=== PATIENT | female | born 1975 | race Caucasian/White ===

== ENCOUNTER → 2024-03-26 10:15 | Outpatient (REF) | payer BC, SELFPAY | LOC: RAD 10:15 | PROVIDERS: ATTENDING PHYSICIAN Urology; FAMILY PHYSICIAN Internal Medicine | DX: N13.39 Other hydronephrosis (principal) | CPT/HCPCS: 76775; 78708; A9539 ==

== ENCOUNTER 2024-07-07 04:18 | Observation (INO) | payer BC, SELFPAY ==
[2024-07-06 21:28] VITALS: BP 119/77
[2024-07-06 21:52] LABS: % Basophils 0.6 % (0-2); % Eosinophils 1.4 % (0-6); % Immature Granulocytes 0.1 % (0-0.5); % Lymphocytes 31.7 % (20.5-51.1); % Monocytes 7.3 % (1.7-9.3); % Neutrophils 58.9 % (42.2-75.2); Absolute Basophils 0.1 10^3/uL (0-0.2); Absolute Eosinophils 0.1 10^3/uL (0-0.7); Absolute Lymphocytes 2.8 10^3/uL (1.2-3.4); Absolute Monocytes 0.6 10^3/uL (0.1-0.6); Absolute Neutrophils 5.1 10^3/uL (1.4-6.5); Hemoglobin 13.5 g/dL (12.0-16.0); Mean Corp Hgb Conc. 35.5 g/dL (33.0-37.0); Mean Corpuscular Hgb 30.5 pg (27.0-31.0); Mean Corpuscular Volume 85.8 fL (81.0-99.0); Mean Platelet Volume 9.5 fL (7.4-10.4); Nucleated Red Blood Cells % 0 %; Platelet Count 287 10^3/uL (130-400); Red Blood Cell Count 4.43 10^6/uL (4.20-5.40); Red Cell Dist. Width 11.9 % (11.5-14.5); White Blood Cell Count 8.7 10^3/uL (4.8-10.8)
[2024-07-06 21:59] LABS: ALT (SGPT) 32 U/L (0-35); AST (SGOT) 37 U/L (14-36); Albumin 4.4 g/dl (3.5-5.0); Alkaline Phosphatase 73 U/L (38-126); Blood Urea Nitrogen 12 mg/dl (7-17); Calcium 9.9 mg/dl (8.4-10.2); Carbon Dioxide 23 mmol/L (22-30); Chloride 103 mmol/L (98-107); Glucose 115 mg/dl (70-99); Potassium 3.5 mmol/L (3.5-5.1); Sodium 139 mmol/L (135-145); Total Bilirubin 0.6 mg/dl (0.2-1.3); Total Protein 6.9 g/dl (6.3-8.2); eGFR > 60.00
[2024-07-06 22:06] VITALS: BP 140/82
[2024-07-06 22:17] LABS: Troponin I < 0.012 ng/ml
--- NOTE | 2024-07-06 22:35 | ED.GENMED ---
History of Present Illness
<KEITH Patel (Lenka) - Last Filed: 07/07/24 00:25>
General
Chief Complaint: Fainting/Passed Out
Source: patient and spouse
Exam Limitations: none
Time Seen by Provider: 07/06/24 22:18
Nursing documentation reviewed up to this point in time: agreed with
History of Present Illness
History of Present Illness:
Pt is a 49yo female with PMHx migraines who presents to the ED after a syncopal event at 2050. Pt was at a football game tonight, felt completely fine leading up to the game and at the start of the game. She was sitting on the benches when her
'stomach felt queasy'. She had not eaten dinner. She stood up to get food and on her way to concessions, she developed blurry vision. She called her , leaned against a fence, and that is all she recalls. Her syncopal event was witnessed by
bystanders. Pt awoke on the ground, hitting the back of her head. states he got to her within 1 minute and pt was awake. Pt states she knew who she was and where she was, but struggled to recall the year. She has had 2 episodes of NBNB
emesis since, and now reports lingering nausea. Matted blood noted to the back of the head, pt complaining of pain to posterior scalp. Denies ADAMS, URI sx, fever/chills, chest pain or palpitations, dyspnea, dizziness, diaphoresis, abdominal pain
(states 'it wasn't pain, it was more discomfort and queasiness'), vaginal or rectal bleeding.
Not on blood thinners.
Not diabetic.
No PMHx of vertigo, vasovagal events, cardiac conditions.
No FHx of cardiac conditions.
Past History
<KEITH Patel (Lenka) - Last Filed: 07/07/24 00:25>
Past History
ED Past Medical History: Other (Migraine headache)
ED Past Surgical History: (x3)
Social History
Tobacco: Non-smoker
Alcohol: None
Drug: None
Personal:
Living: with family
Phy Exam
<KEITH Patel (Lenka) - Last Filed: 07/07/24 00:25>
General Physical Exam
General Presentation: mild distress (appears fatigued and weak side-lying in bed)
General age: appears stated age
General Skin: warm and dry
General Habitus: normal
General Mental: alert
Eye Exam
Eye Exam: EOMI and conjunctiva normal
Cardiovascular Exam
Cardiovascular Exam: regular rate/rhythm, no edema, no gallop and normal peripheral pulses
Pulmonary Exam
Pulmonary Exam: lungs clear, no respiratory distress, no rales, no rhonchi, no wheezing and no cough
Gastrointestinal Exam
Gastrointestinal Exam: normal bowel sounds, non tender, soft and non distended
Neurological Exam
Neurological Exam: alert, oriented x3 and speech normal
Musculoskeletal Exam
Musculoskeletal Exam: other (tenderness to the occiput with palpation)
Skin Exam
Skin Exam: laceration (4cm laceration to posterior scalp, near occiput. )
Course
<KEITH Patel (Lenka) - Last Filed: 07/07/24 00:25>
Orders/Labs/Results
Orders:
Orders
07/06/24 21:32
ECG [Electrocardiogram (*1)] Urgent
Reason for Study: Vertigo / Dizzy
07/06/24 21:33
CT Head W/o Iv Contrast Urgent
Comment:
Reason For Exam: head injury
EKG- Treatment ONCE
07/06/24 21:40
Complete Blood Count/With Diff Urgent
Comprehensive Metabolic Panel Urgent
Troponin I Urgent
07/06/24 23:13
Metoclopramide [Reglan] 10 mg IV NOW STA
07/06/24 23:45
0.9% Sodium Chloride 1000 ml [Nss] 1,000 ml IV BOLUS
07/07/24 00:24
Cephalexin Monohydrate [Keflex] 500 mg PO NOW STA
Meclizine [Antivert] 25 mg PO NOW STA
Tetanus/Diphth/Acelpertussis [Adacel] 0.5 ml IM .ONCE ONE
07/07/24 02:06
Acetaminophen 1000MG/100Ml [Ofirmev] 1,000 mg in 100 ml IV ONCE
Acetaminophen IV Indication:: ED Narcotic Naive Pt-ONCE
Meclizine [Antivert] 25 mg PO NOW STA
07/07/24 03:22
Orthostatic VS- Treatment ONCE
07/07/24 03:57
Admit/Transfer Patient As Directed
Co-Sign Provider:
Level of Care: Observation services
Assign to:: Telemetry
Physician / Group: Ed
Diagnosis: Syncope
Reason for Telemetry: Syncope
Date to Stop Telemetry: 07/09/24
Time to Stop Telemetry: 11:00
Code Status As Directed
Resuscitation Status: Full Code
PRN Pain Medication Management As Directed
May give lesser potent ordered pain med per pt: Yes
preference::
Protocol:: Medication orders for pain may be administered in a
manner that supports deferring to patient preference
when the pt is:
- Requesting an ordered lesser potent pain medication.
Least to most potent pain medications are defined
as: acetaminophen < NSAID < tramadol < opioids
(morphine, oxycodone, hydromorphone).
- Requesting a lesser dose of the same medication IF
ORDERED.
- Requesting a less intrusive route of administration
if both routes are prescribed by the provider (PO <
IV).
07/09/24 11:00
DC Protocol for Telemetry ONCE
Abnormal Lab Results
07/06/24
21:40
Glucose 115 H mg/dl
(70-99)
AST 37 H U/L
(14-36)
07/06/24 21:40
07/06/24 21:40
Vital Signs
Initial and Last Documented VS:
Initial Vital Signs
Temp Pulse Resp BP Pulse Ox
97.9 F 71 20 119/77 99
07/06/24 21:28 07/06/24 21:28 07/06/24 21:28 07/06/24 21:28 07/06/24 21:28
Last Documented Vital Signs
Temp Pulse Resp BP Pulse Ox
97.9 F 78 19 116/78 95
07/06/24 21:28 07/06/24 22:30 07/07/24 03:37 07/07/24 03:37 07/07/24 03:37
<Kerri Scherer, DO - Last Filed: 07/07/24 04:02>
Orders/Labs/Results
Orders:
Orders
07/06/24 21:32
ECG [Electrocardiogram (*1)] Urgent
Reason for Study: Vertigo / Dizzy
07/06/24 21:33
CT Head W/o Iv Contrast Urgent
Comment:
Reason For Exam: head injury
EKG- Treatment ONCE
07/06/24 21:40
Complete Blood Count/With Diff Urgent
Comprehensive Metabolic Panel Urgent
Troponin I Urgent
07/06/24 23:13
Metoclopramide [Reglan] 10 mg IV NOW STA
07/06/24 23:45
0.9% Sodium Chloride 1000 ml [Nss] 1,000 ml IV BOLUS
07/07/24 00:24
Cephalexin Monohydrate [Keflex] 500 mg PO NOW STA
Meclizine [Antivert] 25 mg PO NOW STA
Tetanus/Diphth/Acelpertussis [Adacel] 0.5 ml IM .ONCE ONE
07/07/24 02:06
Acetaminophen 1000MG/100Ml [Ofirmev] 1,000 mg in 100 ml IV ONCE
Acetaminophen IV Indication:: ED Narcotic Naive Pt-ONCE
Meclizine [Antivert] 25 mg PO NOW STA
07/07/24 03:22
Orthostatic VS- Treatment ONCE
07/07/24 03:57
Admit/Transfer Patient As Directed
Co-Sign Provider:
Level of Care: Observation services
Assign to:: Telemetry
Physician / Group: Ed
Diagnosis: Syncope
Reason for Telemetry: Syncope
Date to Stop Telemetry: 07/09/24
Time to Stop Telemetry: 11:00
Code Status As Directed
Resuscitation Status: Full Code
PRN Pain Medication Management As Directed
May give lesser potent ordered pain med per pt: Yes
preference::
Protocol:: Medication orders for pain may be administered in a
manner that supports deferring to patient preference
when the pt is:
- Requesting an ordered lesser potent pain medication.
Least to most potent pain medications are defined
as: acetaminophen < NSAID < tramadol < opioids
(morphine, oxycodone, hydromorphone).
- Requesting a lesser dose of the same medication IF
ORDERED.
- Requesting a less intrusive route of administration
if both routes are prescribed by the provider (PO <
IV).
07/09/24 11:00
DC Protocol for Telemetry ONCE
Abnormal Lab Results
07/06/24
21:40
Glucose 115 H mg/dl
(70-99)
AST 37 H U/L
(14-36)
07/06/24 21:40
07/06/24 21:40
Vital Signs
Initial and Last Documented VS:
Initial Vital Signs
Temp Pulse Resp BP Pulse Ox
97.9 F 71 20 119/77 99
07/06/24 21:28 07/06/24 21:28 07/06/24 21:28 07/06/24 21:28 07/06/24 21:28
Last Documented Vital Signs
Temp Pulse Resp BP Pulse Ox
97.9 F 78 19 116/78 95
07/06/24 21:28 07/06/24 22:30 07/07/24 03:37 07/07/24 03:37 07/07/24 03:37
Procedures
<KEITH Patel (Lenka) - Last Filed: 07/07/24 00:25>
Laceration Closure
Left Posterior Scalp:
Status of Wound: clean
Size of Wound in cm: 3.5
Description of Wound Edges: sharp
Preparation: cleaned with saline
Anesthesia: 1% Lidocaine with epi and added Na Bicarb to local
Revision/Debridement: routine- no revision
Type of Closure: single layer closure
Skin Closure Material: skin loy
Number of sutures: 8 (loy)
<KEITH Patel (Lenka) - Last Filed: 07/07/24 00:25>
MDM/Problems Addressed
Differential Diagnosis Includes:
DDx: vasovagal syncope vs orthostatic hypotension vs PE vs AV block
Chronic conditions affecting care: Other (migraines)
<KEITH Patel (Lenka) - Last Filed: 07/07/24 00:25>
*Critical Care Note
Total Time (30-74mins, 75-104mins- exclusive of procedures): Not Applicable
<KEITH Patel (Lenka) - Last Filed: 07/07/24 00:25>
Update Note
Update Note:
CT head
IMPRESSION:
No evidence of acute intracranial abnormality.
posterolateral scalp hematoma. There are also small foci of air within the scalp, suggesting an associated laceration. No evidence for calvarial fracture.
Electronically signed by Leland Pascual MD, 07/06/2024 10:55 PM
07/07, 0000 - pt's nausea is improved post-reglan when stationary. Still feels vertiginous with movement. Head lac cleaned, noted to be about 3.5 cm in length.
07/07, 0013 - 3mL (2mL lido w/ epi + 1mL bicarb) injected around wound
ED Attending Note
<KEITH Patel (Lenka) - Last Filed: 07/07/24 00:25>
-
Portions of this chart may have been created with voice recognition software.� Occasional wrong word or��sound alike� substitutions may have occurred due to the inherent limitations of voice recognition software.
<Kerri Scherer DO - Last Filed: 07/07/24 04:02>
ED Attending Note
Patient seen and examined by attending physician: Yes
I performed the substantive portion of visit, reviewed & personally made and approve the management plan that is documented in note by myself or BOWEN.: Yes
ED Attending Note:
This is a 49-year-old woman who has no significant past medical history save for migraine headaches which have been very well-controlled, rare in occurrence with onset of menopause December 2023.
Had previously been maintained on Topamax but currently takes no medicines on a daily basis.
While at a local high school football game tonight she began to feel queasy and admits that she had skipped dinner tonight that she got up to ambulate to the stadium snack stand and while doing so she began to not feel well, lightheaded, tunnel
vision, nausea, diaphoresis which proceeded to worsen. She leaned against a fence, called her on her cell phone then proceeded to pass out, falling backwards and striking the back of her head on the ground. Reported brief loss of
consciousness, no report of seizure activity, no loss of bowel or bladder function. No history of similar episodes in the past.
She arrives via EMS and admits to feeling moderately nauseous more so when she changes position with onset of dizziness and nausea. She vomited once in the ambulance and once upon arrival to the ED. She admits to mild to moderate pain focally left
posterior parietal scalp where she has suffered a laceration to her scalp. Mild local bleeding that stopped promptly with brief local pressure.
She denies dizziness prior to syncopal episode, no palpitations.
She denies neck pain or back pain, no chest pain, no shortness of breath, no abdominal pain. No weakness nor numbness. No extremity pain. No vision difficulty.
Mild nausea returns only when she repositions, more so when she turns her head.
She takes no anticoagulants.
TRAUMA EXAM:
VITAL SIGNS: Vital signs reviewed, cooperative
DISTRESS: No active disease
EYES: Pupils reactive, extraocular muscles intact. No orbital trauma
NOSE: No deformity or epistaxis
FACE AND SCALP: 3.5 cm vertical/oblique laceration left posterior parietal scalp with mild local soft tissue swelling, mild to moderate local tenderness to palpation but no palpable bony abnormality.
NECK: Supple, no midline tenderness, full range of motion without difficulty nor pain. Nontender
BACK: Back nontender, pelvis stable to compression
RESPIRATORY: No distress, breath sounds normal, no tender chest wall
CARDIAC: No murmur, pulses equal and strong
ABDOMEN: Soft nontender bowel sounds normal
SKIN: Warm and dry, normal color. Good turgor.
EXTREMITIES: Nontender, full range of motion without difficulty nor pain.
NEUROLOGICAL: Alert, oriented, no motor deficits
PSYCH: Mood affect normal
History most consistent with vasovagal syncope. Other consideration is arrhythmia, hypoglycemia, electrolyte abnormality, acute gastroenteritis. Positional vertigo appears to be posttraumatic in nature versus acute concussion syndrome, concern for
intracranial traumatic injury. Will check CT of the head, labs, EKG, continue air sampling and monitoring.
Initiate IV fluids and given IV dose of Reglan for nausea.
Will update Tdap.
Patient will require staple repair of scalp laceration.
07/07/2024 0207 AM
Labs are unremarkable as is CT of the head showing no acute intracranial traumatic findings.
EKG shows normal sinus rhythm, no acute abnormalities.
Monitor continues to show normal sinus rhythm without arrhythmia.
She remains hemodynamically stable.
Scalp laceration staple repaired by myself and PA student.
Nausea has resolved after IV Reglan and dizziness is markedly improved after a dose of Antivert but she continues with mild dizziness more so with rapid rotation of her head.
Will give an additional dose of Antivert and continue to observe.
07/07/2024 0357 AM
Despite additional dose of Antivert patient continues with significant positional vertigo, nausea. Marked unsteadiness on her feet.
No evidence of orthostasis with sitting up, brief standing.
No arrhythmia.
Due to continued vertiginous symptoms, concern for acute traumatic vertigo versus central vertigo.
Will admit to hospitalist service.
Discharge Plan
Departure
Patient Disposition: Admit
Date of Disposition: 07/07/24
Time of Disposition: 03:54
Admit to: Telemetry
Admit to doctor: Ed
Presentation/result/management discussed w/ accepting MD/DO: Hospitalist
Condition: Fair
Discharge Problem:
Episode of syncope, acute intractable position vertigo
Prescriptions:
No Action
No Current Medications
0
Referrals:
UNKNOWN - PT DOES,NOT KNOW [Unknown Provider] -
Interventions
Interventions:
*Risk Screen - Suicide Last Done: 07/06/24 21:28
*General Assessment Last Done: 07/06/24 21:28
*Neglect/Abuse Screening Last Done: 07/06/24 21:28
ED- Cardiac Assessment Last Done: 07/06/24 22:30
ED- Neurological Assessment Last Done: 07/06/24 22:30
Discharge Date and Time
Print Language: OMANI
[2024-07-06] MEDS: REGLAN 10 MG IV (23:31)
[2024-07-06] MEDS: NSS 1000 IV (23:31)
[2024-07-07] VITALS (11 sets, daily range): BP systolic 98–130; BP diastolic 48–85; PULSE 67–75; O2SAT 100; BMI 25.7
[2024-07-07] MEDS: ANTIVERT 25 MG PO ×2 (01:01→02:20)
[2024-07-07] MEDS: KEFLEX 500 MG PO (01:01)
[2024-07-07] MEDS: ADACEL 0.5 ML IM (01:02)
[2024-07-07] MEDS: OFIRMEV 100 IV (02:17)
--- NOTE | 2024-07-07 03:59 | HPS.HSE ---
Family Physician
-
Family Physician: Christel Wise
Chief Complaint
-
Syncope
History of Present Illness
Patient is a 49y F with PMH significant for migraines who presents to ED complaining of syncopal episode. Patient states that she has been feeling well of late. This evening she was at a football game and began to feel 'funny'. She has some
difficulty describing her symptoms but notes that she felt heaviness in the head and 'didn't feel right'. She felt that her symptoms may be due to skipping dinner and so she went to get something to eat from the concession stand. On her way there,
patient felt unsteady and dizzy. She leaned up against a fence and called her on the phone and then she has no recollection. Patent had fall witnessed by bystanders - falling backward and striking the back of her head on the ground.
Her arrived at the scene within 1 minute and noted at that time that the patient was awake and alert and able to answer questions appropriately.
EMS was called and patient brought to the ED for further evaluation. She developed nausea and has non-bloody emesis in the ambulance and a few times here in the ED.
Patient continues to complain of sense of 'heaviness' in the head. Her symptoms are exacerbated by movement - even by turning her head in the bed (in either direction).
Patient denies any prior history of similar episodes / symptoms.
Medical History
Past Medical History
Past Medical History: Reports Other
Additional Past Medical History:
Migraine Headaches
Past Surgical History: Reports Other
Additional Past Surgical History:
x 3
Hand Surgery
Social History
Tobacco: Non-smoker
Alcohol: Occasional
Family History
Family History: Other (Father: CAD Mother: CAD, CVA Brother: Renal Cell Carcinoma)
Allergies / Home Medications
Allergies reflects when Allergies were last updated in [facility].
Home Medications with original date entered in [facility]
Allergy/Medication List:
Allergies
Allergy/AdvReac Type Severity Reaction Status Date / Time
No Known Allergies Allergy Verified 07/06/24 21:28
Home Medications
No Meds [No Current Medications] 07/07/24
Review of Systems
-
History Source: Patient
A 12 point ROS was completed and negative except as noted: Yes
Constitutional: Denies Fever or Chills
EENT: Denies Sore Throat
Respiratory: Denies Cough or Trouble Breathing
Cardiac: Reports Syncope; Denies Chest Pain or Palpitations
Abdomen/GI: Reports Nausea and Vomiting; Denies Abdominal Pain, Diarrhea, Bloody Stools or Black Stools
: Denies Dysuria, Frequency or Flank Pain
Musculoskeletal: Denies Joint Pain or Edema
Neurological: Reports Dizzy and Headache; Denies Weakness or Numbness
Psych: Denies Depression or Anxiety
Physical Exam
Vital Signs
Vital Signs
Temp Pulse Resp BP Pulse Ox
97.9 F 78 19 116/78 95
07/06/24 21:28 07/06/24 22:30 07/07/24 03:37 07/07/24 03:37 07/07/24 03:37
Physical Exam
General: Other (49y F in no acute distress.)
HEENT: Moist mucous membranes, PERRLA and Other (No nystagmus. Left / Posterior scalp laceration with loy now in place. No evidence of active bleeding.)
Respiratory: Clear; No Wheezes, Rales or Rhonchi
Cardiac: S1/S2 and Regular Rhythm; No Murmur
GI: Soft, Non Tender, Non Distended and Normal Bowel Sounds
Musculoskeletal: No Clubbing, No Cyanosis and No Edema
Neuro: AO x 3 and Nonfocal/grossly intact
Laboratory Results
-
07/06/24 21:40
07/06/24 21:40
Laboratory Results
Total Bilirubin 0.6 mg/dl (0.2-1.3) 07/06/24 21:40
AST 37 U/L (14-36) H 07/06/24 21:40
ALT 32 U/L (0-35) 07/06/24 21:40
Alkaline Phosphatase 73 U/L (38-126) 07/06/24 21:40
Troponin I < 0.012 ng/ml 07/06/24 21:40
Impression/Plan
-
A/P: Patient is a 49y F with PMH significant for migraine headaches who presents to ED for evaluation s/p syncopal episode.
Syncope
? BPPV
- Observe overnight for further evaluation and treatment.
- Patient describes some vertiginous symptoms - including increase on symptoms with position changes / head movements.
- Follow overnight for any new neurologic changes.
- Continue supportive care including IVFs, PRN meclizine, etc.
- PT / OT evaluations in the AM.
- Monitor on telemetry overnight for any evidence of arrhythmia.
Scalp Laceration
- s/p loy in the ED.
- Some current symptoms may be due to concussion - follow for changes / improvement.
- IVF support.
- CT head done in the ED without calvarial fracture / ICH / etc.
- Routine post-concussion care.
DVT Prophylaxis: SCDs
Code Status: Full
[2024-07-07] MEDS: LR 1000 IV ×2 (06:06→23:36)
--- NOTE | 2024-07-07 06:27 | PTCARENOTE ---
Pt arrived to floor form ED. AOx3 VSS. Pt placed on tele. Pt States her head spins and becomes nauseous with movement. C/O 1/10 head pain at site of laceration. Jeremy in place, dried drainage on scalp and hair. Assessment benign otherwise. Will
review chart and follow plan of care.
[2024-07-07 07:38] LABS: Blood Urea Nitrogen 8 mg/dl (7-17); Calcium 8.9 mg/dl (8.4-10.2); Carbon Dioxide 26 mmol/L (22-30); Chloride 108 mmol/L (98-107); Estimated Creatinine Clearance 89 ml/min; Glucose 91 mg/dl (70-99); Potassium 4.1 mmol/L (3.5-5.1); Sodium 141 mmol/L (135-145); eGFR > 60.00
[2024-07-07 07:51] LABS: Hematocrit 35.2 % (37.0-47.0); Hemoglobin 12.5 g/dL (12.0-16.0); Mean Corp Hgb Conc. 35.5 g/dL (33.0-37.0); Mean Corpuscular Hgb 31.3 pg (27.0-31.0); Mean Platelet Volume 9.4 fL (7.4-10.4); Platelet Count 220 10^3/uL (130-400); White Blood Cell Count 7.7 10^3/uL (4.8-10.8)
--- NOTE | 2024-07-07 11:12 | W.PN.HOSP.TC ---
Today's Communication/Plan
-
Repeat CT head
Increase neurocheck frequency to 2 hours for now
Continue on telemetry
Start Accu-Cheks to assess for hypoglycemia
Assessment / Plan
Assessment / Plan
#Syncope -- DDx include hypoglycemia, vasovagal, cardiac arrhythmia; low suspicion for neurogenic/seizure
#Fall with head strike -- not on blood thinners
#Concussion syndrome
-Unclear cause at this time, she states she had not eaten in a while so cannot rule out hypoglycemia
-Symptoms started when she arose from seated position to walk, orthostatic vital signs were negative this morning
-Does not seem to be classical history for vasovagal episode though cannot rule that out either at this time
-Telemetry without any evidence of cardiac arrhythmias, heart rate appears normal, no history
-Does seem to have some symptoms of disequilibrium/dizziness that worsened after fall
-Started on meclizine upon admission for symptom management
Plan
-Order repeat CT head to rule out slow ICH such as subdural hematoma
-Will continue on telemetry, ordered TTE for Tuesday if she is still here
-Start Accu-Cheks every 6 hours to assess for hypoglycemia
-Continue symptomatic therapy with Tylenol and antiemetics
-Continue PT/OT as tolerated
-Neurochecks every 2 hours for now
#Scalp Laceration
-Traumatic laceration of the posterior scalp, s/p loy in the ED
-Has associated concussion-like symptoms as noted above
-Will continue with analgesia as needed
DVT Prophylaxis: SCDs
Diet: Regular
Code Status: Full
Anticipated Discharge: Within 24 hours
Subjective/Interval History
-
Date of Service: July 07, 2024
Seen and examined at the bed this morning. No acute events overnight. This morning she was working with physical therapy and complained of dizziness, seemed off balance with walking. Due to her injury yesterday with head strike, ordering a repeat
CT head without contrast to assess for any new evidence of intracranial hemorrhage.
Telemetry strip overnight showed 2 runs of tachycardia that appeared sinus, but no other signs of ectopy or malignant cardiac arrhythmias.
She states she feels dizzy but denies any paresthesias or focal weakness. She also denies chest pain, shortness of breath, active GI symptoms or urinary symptoms, abnormal bleeding or bruising.
She states yesterday prior to her syncopal episode she was sitting down, then stood up to go walk to get food as she had not eaten in a while, at which point she passed out. She did regain consciousness quickly, no evidence of postictal state.
Objective Data
-
Labs:
Laboratory Results
07/07/24
06:57
WBC 7.7
Hgb 12.5
Hct 35.2 L
Plt Count 220 D
Sodium 141
Potassium 4.1
Chloride 108 H
Carbon Dioxide 26
BUN 8
Creatinine 0.7
Glucose 91
Calcium 8.9
Vital Signs:
Vital Signs
Temp Pulse Resp BP Pulse Ox
98.1 F 62 16 104/48 98
07/07/24 07:42 07/07/24 07:42 07/07/24 07:42 07/07/24 07:42 07/07/24 07:42
Review of Systems
-
History Source: Patient
All other systems: Reviewed and negative
Physical Exam
-
General: No Apparent Distress and Other (Appears unwell, nontoxic); Negative Pain
HEENT: Normocephalic, Atraumatic, Moist Mucous Membranes and Anicteric
Respiratory: Clear to Auscultation and Non Labored Respirations; Negative Wheezes, Rales or Rhonchi
Cardiac: Regular Rhythm and S1/S2; Negative Murmur, Rub, JVD or Gallop
GI: Soft, Nontender, Nondistended and Normal Bowel Sounds
Musculoskeletal: No Clubbing, No Cyanosis and No Edema
Skin: Warm and Dry; Negative Rash or Jaundice
Neuro: AO x 3, Central Nerve's Intact and Other (5/5 MMS to all 4 extremities proximally and distally, no gross sensory deficits, PERRL, EOMI without nystagmus); Negative Tremors, Slurred Speech or Facial Droop
Data Reviewed
-
CT Scan: Report Reviewed by me, Discussed with Nurse and Discussed with Patient
Labs: Labs Reviewed by me and Discussed with Patient
[2024-07-07 11:37] LABS: Glucose - Point of Care 213 mg/dl (70-99)
[2024-07-07] MEDS: TYLENOL 650 MG PO ×2 (14:41→20:58)
--- NOTE | 2024-07-07 16:53 | CM ---
Reviewed chart, met with patient to obtain information for assessment. Patient's spouse was at bedside. Patient stated that she lives with her spouse in a two story home with no steps to enter.
She is independent with her ADLs, personal care, dressing and bathing. She has no DME. 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 She drives and can get to her appointments, shopping and work. She is employed at .
She denied any DME.
She has never had VN or been to a SNF.
She has a prescription plan and uses, [facility] in [place] for all of her medications.
Her PCP is, Christel Islas.
Patient stated that she will return home when she is feeling better and anticipates no needs.
Plan: Case management will continue to follow and assist with discharge planning. Home when stable.
[2024-07-07 18:15] LABS: Glucose - Point of Care 155 mg/dl (70-99)
[2024-07-07 21:31] LABS: Glucose - Point of Care 92 mg/dl (70-99)
[2024-07-08 03:42] VITALS: BP 104/64
[2024-07-08] MEDS: TYLENOL 650 MG PO ×3 (03:59→12:27)
[2024-07-08 07:15] VITALS: BP 134/80
[2024-07-08 07:49] LABS: Glucose - Point of Care 81 mg/dl (70-99)
--- NOTE | 2024-07-08 08:06 | CON.CAR ---
Consultation
Consultation Request
Date/Time Consultation Requested: 07/08/2024
Date/Time Consultation Performed: 07/08/2024
Reason for Consultation: Syncope
Medical History
-
Chief Complaint: Syncope
History of Present Illness:
Crystal Jenkins is a 49-year-old woman without any significant past medical history who presented with sudden onset of loss of consciousness while at the game. Patient did have prodromal symptoms of dizziness lightheadedness. She also felt hungry and
dehydrated. Her loss of consciousness was sudden and she fell down on the ground without any significant injury. Her loss consciousness was brief and witnessed. Patient's son saw her and talk to her. She reported that she was not feeling well
and wanted to get something to eat.
Patient was admitted and monitored on the telemetry for 2 days without any signs of abnormality on the telemetry.
Patient did develop nausea and vomited in the ambulance while en route to the ER. All the symptoms have since been resolved. Patient is feeling much better and back to her baseline now.
Past Medical History
Past Medical History: Other (Headache. Migraine headaches)
Past Surgical History: Other ( x 3 and hand surgery)
Social History
Tobacco: Non-Smoker
Alcohol: Occasional
Personal:
Living: With Family
Family History
Family History: Reviewed & Not Pertinent and Other (Patient father had a coronary artery disease. Mother has heart disease and stroke. Patient's brother had renal cell carcinoma.)
Allergies / Home Medications
Allergy/AdvReac Type Severity Reaction Status Date / Time
No Known Allergies Allergy Verified 07/06/24 21:28
�Medication �Instructions �Recorded �Confirmed �Type
No Meds [No Current Medications] 07/07/24 07/07/24 History
Review of Systems
-
All other systems: Negative unless noted
Physical Exam
Vital Signs
Temp Pulse Resp BP Pulse Ox
98.0 F 68 16 134/80 98
07/08/24 07:15 07/08/24 07:15 07/08/24 07:15 07/08/24 07:15 07/08/24 07:15
Lab Results
Troponin I < 0.012 ng/ml 07/06/24 21:40
Physical Exam
General: Well Developed, Well Nourished, No Apparent Distress and Comfortable
HEENT: Normocephalic, Anicteric and Moist Mucous Membranes
Respiratory: Clear and Non Labored Respirations
Cardiac: S1/S2, Regular Rhythm and Other (No sign of carotid bruits noted.); Negative Murmur, Peripheral Edema or JVD
GI: Soft, Non Tender, Non Distended and Normal Bowel Sounds
Musculoskeletal: No Clubbing, No Cyanosis and No Edema
Neuro: Awake, Alert, Oriented, AO x 3 and No Motor Deficits
Hematologic/Lymphatic: No Lymphadenopathy
Psych: Calm
Impression / Plan
-
49-year-old woman without any significant past cardiac history presented with sudden onset of presyncopal episode.
Syncope
-Patient syncope is likely associated with vasovagal episode.
-Patient's syncope was associated with fall leading to scalp laceration requiring loy in the ER. CT scan shows no acute injury.
-Patient does have a history of migraine headaches and migraines are usually associated with positional vertigo. However, patient does not have any vertigo and likely is not BPPV.
�Patient's symptoms are likely related to vasovagal however cardiac arrhythmias cannot be ruled out.
-Likely no sign of arrhythmias noted since she has been admitted to the hospital.
-2 days of Holter monitoring reviewed did not show any signs of sinus pauses, AV block or any arrhythmias.
-Patient's symptoms are infrequent and needs long-term monitoring. We discussed options of implantable recording versus 1-2-week patch monitoring
-Given patient's symptoms are more consistent with vasovagal, we will avoid any implantable devices.
-Will proceed with echo that can be done as an outpatient
-Will obtain 1 to 2-week patch with Bardy
-Follow-up in 3 to 4 weeks once the Bardy results are available.
Data Reviewed
-
EKG: Tracing Personally Visualized and interpreted
Radiology: Report Reviewed by me
CT Scan: Report Reviewed by me
Labs: Labs Reviewed by me
Old Records: Reviewed
[2024-07-08 08:32] LABS: Blood Urea Nitrogen 8 mg/dl (7-17); Calcium 8.8 mg/dl (8.4-10.2); Carbon Dioxide 27 mmol/L (22-30); Chloride 108 mmol/L (98-107); Estimated Creatinine Clearance 89 ml/min; Glucose 80 mg/dl (70-99); Potassium 4.3 mmol/L (3.5-5.1); Sodium 139 mmol/L (135-145); eGFR > 60.00
[2024-07-08 08:43] LABS: % Basophils 0.4 % (0-2); % Immature Granulocytes 0.2 % (0-0.5); % Lymphocytes 31.4 % (20.5-51.1); % Monocytes 7.4 % (1.7-9.3); % Neutrophils 57.6 % (42.2-75.2); Absolute Eosinophils 0.2 10^3/uL (0-0.7); Absolute Lymphocytes 1.6 10^3/uL (1.2-3.4); Absolute Monocytes 0.4 10^3/uL (0.1-0.6); Absolute Neutrophils 2.9 10^3/uL (1.4-6.5); Hematocrit 37.2 % (37.0-47.0); Hemoglobin 12.6 g/dL (12.0-16.0); Mean Corp Hgb Conc. 33.9 g/dL (33.0-37.0); Mean Corpuscular Hgb 31.2 pg (27.0-31.0); Mean Corpuscular Volume 92.1 fL (81.0-99.0); Mean Platelet Volume 9.9 fL (7.4-10.4); Nucleated Red Blood Cells % 0 %; Platelet Count 194 10^3/uL (130-400); Red Blood Cell Count 4.04 10^6/uL (4.20-5.40); Red Cell Dist. Width 12.1 % (11.5-14.5)
[2024-07-08 08:50] VITALS: BP 107/71; BP 119/75; BP 123/74; PULSE 70; PULSE 73
[2024-07-08] MEDS: LR 1000 IV (10:41)
--- NOTE | 2024-07-08 10:58 | W.PN.HOSP.TC ---
Today's Communication/Plan
-
Cardiology evaluation, possible Holter/MCOT
Continue on telemetry
Plan for TTE tomorrow if here
Assessment / Plan
Assessment / Plan
#Syncope -- DDx include hypoglycemia, vasovagal, cardiac arrhythmia; low suspicion for neurogenic/seizure
#Fall with head strike -- not on blood thinners
-Unclear cause at this time, she states she had not eaten in a while so cannot rule out hypoglycemia
-Symptoms started when she arose from seated position to walk, orthostatic vital signs were negative
-Does not seem to be classical history for vasovagal episode though cannot rule that out either at this time
-Telemetry without any evidence of cardiac arrhythmias, heart rate appears normal, no history
-Symptoms of disequilibrium/dizziness improving today, denies any presyncopal episodes yesterday
-No signs of hypoglycemia per Accu-Cheks here
-Cardiology consult
Plan
-Will continue on telemetry, ordered TTE for Tuesday if she is still here
-Continue with Accu-Cheks every 6 hours to assess for hypoglycemia
-Would likely benefit from outpatient cardiac monitoring
-Continue symptomatic therapy with Tylenol and antiemetics
-Monitor clinically with neurochecks
#Scalp Laceration
-Traumatic laceration of the posterior scalp, s/p loy in the ED
-Has associated concussion-like symptoms as noted above
-Will continue with analgesia as needed
#Concussion syndrome
-Symptoms are improving though still present
-Would expect this to resolve over the next few days to week
-Would likely benefit from neurology referral at [facility] in case symptoms linger
DVT Prophylaxis: SCDs
Diet: Regular
Code Status: Full
Anticipated Discharge: Within 24 hours
Subjective/Interval History
-
Date of Service: July 08, 2024
Patient was seen and examined at the bedside. No acute events reported overnight. No acute events per telemetry.
She states she feels better but does still have significant pain at the site of her head laceration. Tylenol not providing enough relief, ordered Toradol IV as needed.
She denies chest pain, shortness of breath, fevers or chills, palpitations, GI symptoms or urinary issues, abnormal bleeding or bruising, paresthesias or weakness. She does still have some dizziness though it is improved, she was able to walk
without significant disequilibrium.
Objective Data
-
Labs:
Laboratory Results
07/08/24
07:17
WBC 5.0
Hgb 12.6
Hct 37.2
Plt Count 194
Sodium 139
Potassium 4.3
Chloride 108 H
Carbon Dioxide 27
BUN 8
Creatinine 0.7
Glucose 80
Calcium 8.8
Vital Signs:
Vital Signs
Temp Pulse Resp BP Pulse Ox
98.0 F 68 16 134/80 98
07/08/24 07:15 07/08/24 07:15 07/08/24 07:15 07/08/24 07:15 07/08/24 07:15
I&O
07/07/24 07/08/24 07/09/24
06:59 06:59 06:59
Intake Total 660 / 660
Balance 660 / 660
Review of Systems
-
History Source: Patient
All other systems: Reviewed and negative
Physical Exam
-
General: Well Nourished, No Apparent Distress and Comfortable
HEENT: Normocephalic, Atraumatic, Moist Mucous Membranes and Anicteric
Respiratory: Clear to Auscultation and Non Labored Respirations; Negative Wheezes, Rales or Rhonchi
Cardiac: Regular Rhythm and S1/S2; Negative Murmur, Rub or Gallop
GI: Soft, Nontender, Nondistended and Normal Bowel Sounds
Musculoskeletal: No Clubbing, No Cyanosis and No Edema
Skin: Warm, Dry and Normal Turgor; Negative Rash
Neuro: AO x 3, Nonfocal/Grossly Intact, Central Nerve's Intact and Other (No nystagmus, EOMI, PERRL)
Psych: Calm
Data Reviewed
-
Medical Tests (Nuc Med, Echo etc): Discussed with Patient
Labs: Labs Reviewed by me and Discussed with Patient
[2024-07-08 11:18] VITALS: BP 130/79
[2024-07-08 12:12] VITALS: BP 131/63; PULSE 61; O2SAT 100
[2024-07-08 12:13] LABS: Glucose - Point of Care 90 mg/dl (70-99)
[2024-07-08] MEDS: ZOFRAN 4 MG IV (12:23)
[2024-07-08 15:11] VITALS: BP 153/72
--- NOTE | 2024-07-08 15:37 | W.DCSUMMARY ---
Discharge Summary
Discharge Data
Date of Admission: 07/07/24
Date of Discharge: 07/08/24
-
Pending Results: Yes
Additional Pending Results:
Ambulatory cardiac monitoring
Hospital Course
Patient presented to the hospital with a syncopal episode at a football game, stood up to walk and get food when she lost consciousness and hit the back of her head. Quickly regained consciousness and brought into the emergency department.
Differentials included orthostasis vasovagal syncope, hypoglycemia, underlying cardiac arrhythmia. Orthostatic vital signs were negative for she was started on Accu-Cheks without any evidence of hypoglycemia. Monitor on telemetry with no cardiac
ectopy or underlying arrhythmias detected. Evaluated by cardiology in the hospital, ambulatory monitoring was arranged prior to discharge. Plan to have an outpatient echocardiogram and follow-up in the [facility] office. Ultimately suspect that
this is vasovagal incident though benefit from wire inserter as she is young and healthy.
She did have dizziness and disequilibrium following her fall. CT head on multiple occasions without any acute findings, no signs of intracranial hemorrhage. Her symptoms did improve while hospitalized, worked with PT OT and received vestibular
therapy. Urged her to follow-up with her primary care in the office within 7 days to reassess concussion symptoms. Discharged with 1 week prescription of meclizine for symptomatic relief. Provided her with a prescription for vestibular therapy
and physical therapy after discharge.
Jeremy to be removed in office by PCP for scalp laceration related to her fall.
Discharge Plan
-
Patient Disposition: Home (Routine Discharge)
Discharge Diagnosis/Procedures: Syncope of unclear origin
Condition: Good
Diet: No restrictions
Activity: As tolerated
Additional Activity: Rx for vestibular therapy and physical therapy provided
Driving Restrictions: Not until seen by your Dr
Bathing Restrictions: None
Blood Work: None
Others Tests: Ambulatory wire inserter -- will be ordered by cardiology
Activity Restrictions/Additional Instructions:
Schedule follow-up appoint with your primary care doctor for within 7 days of discharge
Call cardiology office, referral provided, to confirm appointment
Referrals:
Christel Wise, [Family Provider] -
Orly Taylor MD [Active] - in two to three weeks
Additional Discharge Medication Instructions: Prescription sent for meclizine, 25 mg every 8 hours as needed for dizziness
Use [id number] NSAID or Tylenol for headache symptoms
Prescriptions:
New
meclizine 25 mg Tablet
25 mg PO Q8HPRN PRN (Reason: Dizziness) 7 Days Qty: 20 0RF
Discharge Orders:
Discharge Patient (As Directed); Ordered 07/08/24
Ordered By: Clement Brennan
Discharge Date and Time
Print Language: SWEDISH
== END 2024-07-08 16:59 | disposition home or self-care (01) ==
LOC: 3 WEST ACU 04:18
PROVIDERS: Emergency Medicine; ADMITTING PHYSICIAN Hospitalist; ATTENDING PHYSICIAN Internal Medicine; CONSULT PHYSICIAN Internal Medicine Cardiovascular Disease; EMERGENCY PHYSICIAN Emergency Medicine; FAMILY PHYSICIAN Internal Medicine
DX: R55 Syncope and collapse (principal); H53.8 Other visual disturbances; R11.2 Nausea with vomiting, unspecified; S01.01XA Laceration without foreign body of scalp, initial encounter; R42 Dizziness and giddiness; W18.39XA Other fall on same level, initial encounter; Y93.89 Activity, other specified; Y92.321 Football field as the place of occurrence of the external cause; Y99.8 Other external cause status; G43.909 Migraine, unspecified, not intractable, without status migrainosus; Z82.3 Family history of stroke; Z82.49 Family history of ischemic heart disease and other diseases of the circulatory system; Z80.51 Family history of malignant neoplasm of kidney
CPT/HCPCS: 12002; 70450; 80048; 80053; 82962; 84484; 85025; 85027; 90471; 90715; 93005; 96361; 96374; 96375; 97112; 97116; 97163; 97166; 99285; G0378

== ENCOUNTER → 2024-07-12 09:07 | Outpatient (REF) | payer BC, SELFPAY | LOC: RCS 09:07 | PROVIDERS: ATTENDING PHYSICIAN Internal Medicine Cardiovascular Disease; FAMILY PHYSICIAN Internal Medicine | DX: R55 Syncope and collapse (principal) | CPT/HCPCS: 93306 ==

== ENCOUNTER → 2024-08-02 08:46 | Outpatient (REF) | payer BC, SELFPAY ==
[2024-08-02 09:57] LABS: % Basophils 0.5 % (0-2); % Eosinophils 1.4 % (0-6); % Immature Granulocytes 0.2 % (0-0.5); % Lymphocytes 23.5 % (20.5-51.1); % Monocytes 5.6 % (1.7-9.3); % Neutrophils 68.8 % (42.2-75.2); Absolute Eosinophils 0.1 10^3/uL (0-0.7); Absolute Lymphocytes 1.3 10^3/uL (1.2-3.4); Absolute Monocytes 0.3 10^3/uL (0.1-0.6); Absolute Neutrophils 3.8 10^3/uL (1.4-6.5); Hematocrit 43.3 % (37.0-47.0); Hemoglobin 14.6 g/dL (12.0-16.0); Mean Corp Hgb Conc. 33.7 g/dL (33.0-37.0); Mean Corpuscular Hgb 30.6 pg (27.0-31.0); Mean Corpuscular Volume 90.8 fL (81.0-99.0); Nucleated Red Blood Cells % 0 %; Platelet Count 260 10^3/uL (130-400); Red Blood Cell Count 4.77 10^6/uL (4.20-5.40); Red Cell Dist. Width 11.9 % (11.5-14.5); White Blood Cell Count 5.5 10^3/uL (4.8-10.8)
[2024-08-02 10:43] LABS: Glycohemoglobin (HgbA1c) 4.8 % (4.0-5.6)
[2024-08-02 10:55] LABS: ALT (SGPT) 40 U/L (0-35); AST (SGOT) 40 U/L (14-36); Albumin 4.5 g/dl (3.5-5.0); Alkaline Phosphatase 60 U/L (38-126); Blood Urea Nitrogen 13 mg/dl (7-17); Calcium 9.8 mg/dl (8.4-10.2); Carbon Dioxide 26 mmol/L (22-30); Chloride 103 mmol/L (98-107); Glucose 87 mg/dl (70-99); HDL Cholesterol 57 mg/dl; LDL Cholesterol, Calculated 147 mg/dl; Potassium 4.7 mmol/L (3.5-5.1); Sodium 142 mmol/L (135-145); Total Cholesterol 225 mg/dl (50-199); Triglyceride 108 mg/dl (10-149); Very Low Density Lipoprotein 21 mg/dl (0-30); eGFR > 60.00
[2024-08-02 11:07] LABS: Vitamin D, 25-OH*** 35.6 ng/mL (30-80)
[2024-08-02 11:21] LABS: TSH Reflex To Free T4 0.49 uIU/ml (0.47-4.68)
== END ==
LOC: REG 08:46
PROVIDERS: ATTENDING PHYSICIAN Internal Medicine
DX: Z00.00 Encounter for general adult medical examination without abnormal findings (principal); Z13.29 Encounter for screening for other suspected endocrine disorder; R73.01 Impaired fasting glucose
CPT/HCPCS: 36415; 80053; 80061; 82306; 83036; 84443; 85025

== ENCOUNTER → 2024-09-25 15:26 | Outpatient (REF) | payer BC, SELFPAY | LOC: WDC 15:26 | PROVIDERS: ATTENDING PHYSICIAN Internal Medicine | DX: Z12.31 Encounter for screening mammogram for malignant neoplasm of breast (principal) | CPT/HCPCS: 77063; 77067 ==

== ENCOUNTER → 2025-07-10 07:07 | Outpatient (REF) | payer BC, SELFPAY ==
[2025-07-10 07:59] LABS: Hematocrit 41.5 % (37.0-47.0); Hemoglobin 14.0 g/dL (12.0-16.0); Mean Corp Hgb Conc. 33.7 g/dL (33.0-37.0); Mean Corpuscular Volume 88.1 fL (81.0-99.0); Nucleated Red Blood Cells % 0 %; Platelet Count 250 10^3/uL (130-400); Red Cell Dist. Width 11.6 % (11.5-14.5)
[2025-07-10 10:31] LABS: Glycohemoglobin (HgbA1c) 5.0 % (4.0-5.6)
[2025-07-10 10:59] LABS: ALT (SGPT) 39 U/L (0-35); AST (SGOT) 34 U/L (14-36); Albumin 4.3 g/dl (3.5-5.0); Alkaline Phosphatase 68 U/L (38-126); Blood Urea Nitrogen 13 mg/dl (7-17); Calcium 9.8 mg/dl (8.4-10.2); Carbon Dioxide 29 mmol/L (22-30); Chloride 106 mmol/L (98-107); Glucose 73 mg/dl (70-99); Potassium 4.4 mmol/L (3.5-5.1); Sodium 139 mmol/L (135-145); Total Protein 6.8 g/dl (6.3-8.2); Very Low Density Lipoprotein 29 mg/dl (0-30); eGFR > 60.00
[2025-07-10 11:15] LABS: HDL Cholesterol 47 mg/dl; LDL Cholesterol, Calculated 143 mg/dl; Vitamin D, 25-OH*** 35.5 ng/mL (30-80)
[2025-07-10 11:29] LABS: TSH 1.01 uIU/ml (0.47-4.68)
== END ==
LOC: REG 07:07
PROVIDERS: ATTENDING PHYSICIAN Internal Medicine
DX: Z00.00 Encounter for general adult medical examination without abnormal findings (principal); R73.01 Impaired fasting glucose; E55.9 Vitamin D deficiency, unspecified
CPT/HCPCS: 36415; 80053; 80061; 82306; 83036; 84443; 85025

== ENCOUNTER → 2025-09-26 16:01 | Outpatient (REF) | payer BC, SELFPAY | LOC: WDC 16:01 | PROVIDERS: ATTENDING PHYSICIAN Internal Medicine | DX: Z12.31 Encounter for screening mammogram for malignant neoplasm of breast (principal) | CPT/HCPCS: 77063; 77067 ==